=== PATIENT | male | born 2000 | race Caucasian/White ===

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

== ENCOUNTER → 2023-05-01 | Outpatient (CLI) | payer BC, SELFPAY ==
--- NOTE | 2023-05-01 08:09 | RDU_ITS ---
Reason For Study: HTN Right Renal Artery Left Renal Artery Right renal artery ostium Left renal artery ostium 138.1/34.9 179.8/50.4 RSV/EDV. PSV/EDV. Right renal artery proximal Left renal artery proximal PSV/EDV 144.9/41.8 PSV/EDV. 70.9/29.3 . Right renal artery mid 122.2/36.7 Left renal artery mid 78.9/22.6 PSV/EDV. PSV/EDV . Right renal artery distal Left renal artery distal 81.6/24.0 119.7/44.3 PSV/EDV. PSV/EDV. Unable to calculate RAR due to AO Unable to calculate RAR due to AO PSV greater than 100. PSV greater than 100. Right Renal Parenchyma Left Renal Parenchyma Upper Pole Medula 41.3/18.2 Left upper pole medulla 45.6/17.1 PSV/EDV. PSV/EDV . Right upper pole medulla EDR 0.40 . Left upper pole medulla EDR 0.40 . Right upper pole medulla R.I. Left upper pole medulla R.I. 0.62 . 0.56 . UP Cortex 19.4/8.4 PSV/EDV. Upper Uday Cortx 34.7/14.9 PSV/EDV. Left upper pole cortex EDR 0.40 . Right upper pole cortex EDR 0.40 . Left upper pole cortex R.I. 0.57 . Right upper pole cortex R.I. 0.57 . Left lower Pole medulla 39.7/17.6 Right lower Pole medulla 48.9/17.1 PSV/EDV . PSV/EDV . Left lower pole medulla EDR 0.40 . Right lower pole medulla EDR 0.30 . Left lower pole medulla R.I. 0.56 . Right lower pole medulla R.I. Lower Pole Cortx 24.1/9.8 PSV/EDV. 0.65 . Left lower pole cortex EDR 0.40 . Lower Pole Cortex 29.4/12.7 Left lower pole cortex R.I. 0.59 . PSV/EDV. Left Renal Hilar Right lower pole cortex EDR 0.40 . LT Hilar avg 81.3/29.4 PSV/EDV . Right lower pole cortex R.I. 0.62 . Left hilar acceleration time 30 Right Renal Hilar m/sec. Right Hilar avg 80.1/26.4 PSV/EDV. Left Renal Dimensions Right hilar acceleration time 40 Left kidney size 11.50 cm . m/sec. Left cortical dimension 2.29 cm . Right Renal Dimensions Right kidney size 11.35 cm . Right cortical dimension 2.28 cm . Aorta Proximal abdominal aorta 1.48 x 1.50 cm . Proximal abdominal aorta peak systolic velocity is 119.8 cm/sec . Distal abdominal aorta 1.78 x 1.82 cm . Distal abdominal aorta peak systolic velocity is 124.8 cm/sec . VL/Renal Artery Duplex Ultrasound Interpretation Summary Right renal artery patent with normal velocities and no evidence of stenosis Left renal artery patent with normal velocities and no evidence of stenosis Right renal vein patent Left renal vein patent Right kidney normal in size Left kidney normal in size Right renal resistive index and acceleration time normal Left renal resistive index and acceleration time normal Ordering Physician: Amisha Echeverria Referring Physician: Amisha Echeverria Performed By: Vignesh Sage, RVT
== END | disposition home or self-care (01) ==
PROVIDERS: PCP Internal Medicine; Referring Provider Internal Medicine; Visit Provider Internal Medicine
DX: I10 Essential (primary) hypertension (principal)
CPT/HCPCS: 93975

== ENCOUNTER → 2023-08-26 | Outpatient (CLI) | payer BC, SELFPAY | END | disposition home or self-care (01) | LOC: CVS 09:05 | PROVIDERS: PCP Internal Medicine; Referring Provider Internal Medicine; Visit Provider Internal Medicine | DX: I10 Essential (primary) hypertension (principal) | CPT/HCPCS: 93788 ==